=== PATIENT | male | born 1950 | race Caucasian/White ===

== ENCOUNTER 2019-02-21 09:15 | Inpatient (IN) ==
--- NOTE | 2019-02-08 16:07 | PAT Medication Instructions ---
Medication Instructions Date of Service February 08, 2019 Home Medications cholecalciferol (vitamin D3) 5,000 5,000 units PO DAILY diazepam 5 mg tablet 5 mg PO DAILY tab docusate sodium 100 mg capsule 100 mg PO DAILY glipizide 10 mg tablet 10 mg PO DAILY hydrochlorothiazide 25 mg tablet 25 mg PO DAILY lisinopril 20 mg tablet 20 mg PO DAILY magnesium 200 mg tablet 400 mg PO DAILY tab pseudoephedrine ER 120 mg 120 mg PO Q12H sildenafil 100 mg tablet 100 mg PO DAILY PRN Fire Cider 1 dose PO QAM Continue as directed diazepam 5 mg tablet 5 mg PO DAILY tab DO NOT take the morning of surgery cholecalciferol (vitamin D3) 5,000 5,000 units PO DAILY docusate sodium 100 mg capsule 100 mg PO DAILY glipizide 10 mg tablet 10 mg PO DAILY hydrochlorothiazide 25 mg tablet 25 mg PO DAILY lisinopril 20 mg tablet 20 mg PO DAILY magnesium 200 mg tablet 400 mg PO DAILY tab pseudoephedrine ER 120 mg 120 mg PO Q12H sildenafil 100 mg tablet 100 mg PO DAILY PRN Fire Cider 1 dose PO QAM Other Notes If you have any questions please call us at [phone] or [phone] or [phone] or [phone]
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
[2019-02-09 11:29] LABS: Basophils # (auto) 0.03 K/uL (0-0.2); Basophils % (auto) 0.4 %; Eosinophils # (auto) 0.14 K/uL (0-0.5); Eosinophils % (auto) 1.8 %; Hematocrit (blood only) 50.8 % (42-52); Hemoglobin 18.5 g/dL (14.0-18.0); Immature Granulocytes # (auto) 0.04 K/uL (0.00-0.02); Immature Granulocytes % (auto) 0.5 %; Lymphocytes # (auto) 2.31 K/uL (1.2-3.4); Lymphocytes % (auto) 30.5 %; Mean Corpuscular Hgb Conc 36.4 g/dL (32-36); Mean Corpuscular Volume 94.2 fL (80-100); Mean Platelet Volume 11.6 fL (7.4-10.4); Monocytes # (auto) 0.89 K/uL (0.11-0.59); Monocytes % (auto) 11.8 %; Neutrophils # (auto) 4.16 K/uL (1.4-6.5); Platelet Count 195 K/uL (130-400); RDW Coefficient of Variation 13.1 % (11.5-14.5); RDW Standard Deviation 44.7 fL (36.4-46.3); Red Blood Count 5.39 M/uL (4.7-6.1); White Blood Count 7.57 K/uL (4.8-10.8)
[2019-02-09 11:36] LABS: Appearance Urine Clear (Clear); Bilirubin Urine Negative (Negative); Blood Urine Negative (Negative); Color Urine Yellow; Glucose Urine UA 3+ (Negative); Ketones Urine Trace (Negative); Leukocyte Esterase Urine Negative (Negative); Nitrite Urine Negative (Negative); Protein Urine Negative (Negative); Specific Gravity Urine 1.025 (1.000-1.030); Urobilinogen Urine Negative (Negative)
[2019-02-09 11:39] LABS: BUN Creatinine Ratio 16.5 (10-20); Calcium 9.3 mg/dl (8.5-10.1); Creatinine Clr Calc Pharmacy 87.1 ml/min; Est GFR (African American) 104.5; Est GFR (Non-African American) 90.2; Potassium 4.2 mmol/L (3.5-5.1)
--- NOTE | 2019-02-09 11:45 | XRay Report ---
TWO VIEW CHEST CLINICAL HISTORY: Preoperative examination. FINDINGS: PA and lateral chest radiographs are obtained No prior studies are available for comparison at the time of dictation. The cardiomediastinal silhouette is unremarkable, noting atherosclerotic c alcification of the thoracic aorta. A 10 mm nodular density projects over the left lower lobe. Emphys jennifer is suspected. Nonspecific interstitial thickening is likely chronic. No airspace consolidation or pleural effusion is identified. There is no pneumothorax. The bony thorax appears intact. Degenerati ve change is noted in the thoracic spine. IMPRESSION: 1. There is no active disease in the chest. 2. Suspect emphysema. 3. A 10 mm nodular density projecting over the left lower lobe likely represents a nipple shadow. A r epeat examination with nipple markers is recommended for confirmation. Electronically signed by: Aamir Cano M.D. 02/09/2019 11:43 AM
[~2019-02-21 09:15] MED LIST: CEFAZOLIN 2000MG 2,000 MG/15 ML SYR IV SCH; DEXAMETHASONE SOD INJ 4 MG/ML VIAL ONE; GLYCOPYRROLATE 0.2 MG/ML VIAL ONE; HEPARIN SOD (PORCINE) 1000 UNIT/ML 1 ML VIAL IV SCH; HEPARIN SOD (PORCINE) 5,000 UNITS/ML VIAL IV SCH; LIDOCAINE HCL 2% 2 ML VIAL/AMP(20MG/ML) INFIL ONE; LR 15ML/HR IV SCH; MIDAZOLAM HCL 1 MG/ML 2ML VIAL ONE; NEOSTIGMINE METHYLSULFATE 5 MG/5 ML SYR ONE; ONDANSETRON INJ 2 MG/ML 2 ML VIAL ONE; PROPOFOL IV EMULSION 10 MG/ML 20 ML VIAL IV ONE; fentaNYL citrate 100 MCG/2 ML VIAL ONE
[2019-02-21] MEDS ORDERED: ePHEDrine sulfate 50 MG/ML AMP IV PRN (10:00)
[2019-02-21] MEDS ORDERED: ATROPINE SULFATE 0.1 MG/ML 10ML SYR IV PRN (10:00)
[2019-02-21] MEDS ORDERED: DEXAMETHASONE SOD INJ 4 MG/ML VIAL IV PRN (10:00)
[2019-02-21] MEDS ORDERED: HYDROmorphone INJ 2 MG/ML SYR/VIAL IV PRN (10:00)
[2019-02-21] MEDS ORDERED: fentaNYL citrate 100 MCG/2 ML VIAL IV PRN (10:00)
[2019-02-21] MEDS ORDERED: ONDANSETRON INJ 2 MG/ML 2 ML VIAL IV PRN ×2 (10:00→16:11)
--- NOTE | 2019-02-21 10:17 | History & Physical Bridge Note ---
Date of Service February 21, 2019 History & Physical Bridge Note I have examined the patient, reviewed the History & Physical and in the interval since the performance of the History & Physical I have noted the following changes of clinical significance: no changes noted
[2019-02-21] MEDS ORDERED: HEPARIN SOD 5,000 UNIT/0.5 ML VIAL ONE (10:29)
[2019-02-21] MEDS ORDERED: BUPIVACAINE 0.5 % 5 MG/1 ML MPF 30ML VIAL ONE (10:59)
[2019-02-21] MEDS ORDERED: BELLADONNA/OPIUM SUPP 60 MG SUPP PR ONE (11:31)
[2019-02-21] MEDS ORDERED: ONDANSETRON INJ 2 MG/ML 2 ML VIAL ONE (11:45)
[2019-02-21] MEDS ORDERED: GLYCOPYRROLATE 0.2 MG/ML VIAL ONE (11:45)
[2019-02-21] MEDS ORDERED: HYDROmorphone INJ 2 MG/ML SYR/VIAL ONE (11:56)
[2019-02-21] MEDS ORDERED: FLOSEAL HEMOSTATIC MATRIX 10ML TOP ONE (12:32)
[2019-02-21] MEDS ORDERED: LABETALOL HCL IV 5 MG/ML 20ML IV ONE (12:56)
--- NOTE | 2019-02-21 14:27 | Operative Report ---
Post Operative Report Pre & Post Diagnosis Operation Date: 02/21/19 11:10 Pre-Op Diagnosis: Prostate Cancer Post-Op Diagnosis: Prostate Cancer Procedure Operation Date: 02/21/19 11:10 Actual Procedures p Robot Assisted Laparoscopic Radical Retropubic Prostatectomy(Not Applicable) - Lázaro Contreras MD Surgeon Jostin Contreras MD Supervisor [employer] Angelique Gautam Estimated Blood Loss 100 Findings Consistent with Post-Op Diagnosis Specimens 1. Periprostatic fat 2. R pelvic lymph nodes 3. L pelvic lymph nodes 4. Prostate and seminal vesicles Description of Procedure The patient was identified in the preoperative holding area, appropriate informed consents were reviewed and completed, and he was transported to the operating suite. Subcutaneous heparin was administered in the pre-operative holding area. Upon arrival in the operating suite, he received appropriate antibiotics and general anesthesia. He was positioned in dorsal lithotomy, a B&O suppository was inserted after digital rectal exam, and he was prepped and draped in standard fashion. A Carvajal catheter was inserted in the sterile field. A Veress needle was passed per umbilicus with uniform insufflation of the abdomen to 15mmHg. He was placed in steep Trendelenburg position. A periumbilical incision was then made to accommodate a 12mm Visiport with 10mm 0degree laparoscope. Inspection of the abdomen was carried out, and there was no evidence of traumatic entry or injury secondary to the Veress needle. After confirming a clear anterior abdominal wall, ports were subsequently placed in standard robotic prostatectomy fashion without incident. To begin the robotic portion of the case, the left lateral aspect of the sigmoid was mobilized off of the left pelvic side wall to allow the pouch of Matt to be appropriately visualized. I then made an incision in the pouch of Matt, overlying the seminal vesicles. Both SVs as well as the ampullae of the vasa were entirely dissected, with the vasa transected 3cm from the prostate. The medial umbilical ligaments were then controlled with bipolar electrocautery just inferior to the umbilicus. Following cauterization, they were divided utilizing monopolar cautery. A peritoneal incision was carried from this location to the medial aspect of the internal inguinal rings bilaterally with care to avoid opening through the ring. This incision was concluded when the vas deferens was reached. Dissection of the bladder and prostate off of the posterior aspect of the pubic arch was completed allowing full visualization of the prostate. The fat overlying the prostate was removed en bloc and passed off the table as a specimen labeled "periprostatic fat". The endopelvic fascia was cleared during this portion of the procedure, and subsequently opened - first on the right and then the left. The incision through the endopelvic fascia began near the prostate-bladder junction and was carried to the apex with extreme care to preserve all lateral levator musculature as well as the periurethral musculature and sphincter complex. The puboprostatic ligaments were thinned slightly bilaterally before placing a 0-Vicryl figure of 8 stitch around the DVC. The lymph node dissection was then conducted. External iliac vessels were identified on the pelvic side wall. The packet of fat and lymphatic tissue that resides just under the iliac vein was elevated and off of the vein with a split and roll technique. The packet was dissected laterally to the circumflex vein and distally to the obturator nerve which was preserved. The proximal aspect of the packet was carried towards the bifurcation of the iliac vessels. A combination of monopolar and bipolar cautery were used to assist wi th control. Clips were placed at the proximal and distal aspects of the packet prior to transection. After completing the dissection on both sides, the packets were collected and passed off of the table as specimens labeled "pelvic lymph nodes". My attention then returned to the prostate, with identification of the bladder neck aided by gentle traction on the Carvajal catheter and lateral to medial pressure at the presumed level of the bladder neck with the robotic instruments. An anterior cystotomy was made, the Carvajal balloon deflated and the catheter guided through the incision to allow anterior retraction. I attempted to preserve maximal bladder neck musculature as I circumferentially dissected around the bladder neck. After incision through the posterior aspect of the mucosa, the dissection was carried through detrusor muscle until the bilateral ampullae of the vasa were identified. The previously dissected vasa and SVs were brought through the incision and used to elevated the prostate anteriorly. A posterior plane behind the prostate was then developed - splitting Denonvilliers's fascia. This dissection was carried as far as possible towards the apex as well as far as possible laterally. An incision in the lateral prostatic fascia was then made bilaterally to facilitate control of the vascular pedicles. The pedicles were each controlled with a series of Weck clips. The neurovascular bundles were identified with a relatively wide/cautious never dissection bilaterally. The apical attachments of the prostate were remaining at that stage. The DVC was divided with bipolar electrocautery. Ramonita-prostatic tissue incised with sharp dissection and monopolar cautery. Maximal urethral length was preserved before dividing the urethra sharply. The prostate was entirely freed at that point, and collected in an EndoCatch bag before being moved out of the field of vision. Hemostasis was confirmed and anastomosis of the bladder and urethra was completed utilizing a double armed V- Lock stitch. A new Carvajal catheter was inserted and the anastomosis tested with irrigation. There was no evidence of leak. FloSeal coagulant was placed around the anastomosis. A "Livan stitch" was used to marsupialize the area where the lymph node dissection was conducted. The robot was undocked, the specimen extracted through expansion of the ramonita- umbilical camera port. The fascia was closed with a series of 0-PDS figure of 8 stitches. The right pet care assistant port was closed in two layers - with a figure of 8 0-Vicryl to reapproximate the fascia followed by 4-0 Monocryl to close the skin. Monocryl was used to close all other skin incisions. All wounds were dressed with Dermabond. The case was concluded and the patient taken to the PACU in stable condition. I attest to the content of the Intraoperative Record and any orders documented therein. Any exceptions are noted below.
[2019-02-21] MEDS ORDERED: ROCURONIUM BROMIDE 10 MG/ML 5 ML VIAL ONE (14:43)
[2019-02-21 14:56] LABS: Basophils # (auto) 0.03 K/uL (0-0.2); Basophils % (auto) 0.3 %; Eosinophils # (auto) 0.03 K/uL (0-0.5); Eosinophils % (auto) 0.3 %; Hematocrit (blood only) 47.7 % (42-52); Hemoglobin 17.3 g/dL (14.0-18.0); Immature Granulocytes # (auto) 0.04 K/uL (0.00-0.02); Immature Granulocytes % (auto) 0.4 %; Lymphocytes # (auto) 0.76 K/uL (1.2-3.4); Lymphocytes % (auto) 8.3 %; Monocytes % (auto) 3.3 %; Neutrophils # (auto) 7.95 K/uL (1.4-6.5); Neutrophils % (auto) 87.4 %; Platelet Count 222 K/uL (130-400); RDW Standard Deviation 44.6 fL (36.4-46.3); Red Blood Count 5.02 M/uL (4.7-6.1); White Blood Count 9.11 K/uL (4.8-10.8)
[2019-02-21] MEDS ORDERED: PROMETHAZINE HCL 12.5 MG in SODIUM CHLORIDE 0.9% 50 ML IV STA (14:59)
[2019-02-21 15:03] LABS: Mean Corpuscular Hgb Conc 36.3 g/dL (32-36)
--- NOTE | 2019-02-21 15:10 | Anesthesiology Progress Note ---
Date of Service February 21, 2019 Anesthesia Post Procedure Vital Signs Vital Signs: Temp Pulse Pulse Resp BP Pulse Ox 02/21/19 15:05 76 14 129/75 90 02/21/19 14:55 76 14 137/82 93 02/21/19 14:45 77 17 129/77 89 L 02/21/19 14:36 36.1 C L 80 21 138/76 93 02/21/19 09:23 36.2 C L 80 20 133/85 92 Notes Mental Status: alert / awake / arousable and participated in evaluation Patient Amnestic to Procedure: Yes Nausea / Vomiting: adequately controlled Pain: adequately controlled Airway Patency, RR, SpO2: stable & adequate BP & HR: stable & adequate Hydration State: stable & adequate Anesthetic Complications: no major complications apparent
[2019-02-21 15:15] LABS: BUN Creatinine Ratio 13.7 (10-20); Calcium 8.6 mg/dl (8.5-10.1); Creatinine Clr Calc Pharmacy 81.3 ml/min; Est GFR (African American) 100.7; Est GFR (Non-African American) 86.9
[2019-02-21] MEDS ORDERED: NICOTINE 14 MG/24 HR PATCH TD PRN (16:11)
[2019-02-21] MEDS ORDERED: diazePAM 5 MG TABLET PO PRN (16:11)
[2019-02-21] MEDS ORDERED: ACETAMINOPHEN 325 MG TAB PO PRN (16:11)
[2019-02-21] MEDS ORDERED: ACETAMINOPHEN W/CODEINE #3 1 TAB PO PRN (16:11)
[2019-02-21] MEDS ORDERED: PHARMACY GLYCEMIC MGMT CONSULT PRN (16:23)
[2019-02-21] MEDS: KETOROLAC TROMETHAMINE 15 MG/ML VIAL IV PRN (16:42)
[2019-02-21] MEDS ORDERED: INSULIN GLARGINE SOLOSTAR 100 UNITS/ML 3 ML PEN SC STA (16:47)
[2019-02-21] MEDS ORDERED: GLUCAGON FOR INJ 1 MG VIAL IM PRN (17:00)
[2019-02-21] MEDS ORDERED: DEXTROSE 50% 50 ML SYRINGE IV PRN (17:00)
[2019-02-21] MEDS ORDERED: GLUCOSE 40% GEL 15 GM TUBE PO PRN (17:00)
[2019-02-21] MEDS ORDERED: GLUCOSE 10 TABS/TUBE PO PRN (17:00)
[2019-02-21] MEDS ORDERED: CARBOHYDRATES FOR HYPOGLYCEMIA PO PRN (17:00)
[2019-02-21] MEDS: INSULIN ASPART 100 UNITS/ML 3 ML PEN SC SCH ×2 (18:26→21:20)
[2019-02-21] MEDS: LACTATED RINGER'S 1,000 ML IV SCH (18:31)
[2019-02-21 19:57] LABS: Prothrombin Time 10.3 Seconds (9.0-12.0)
[2019-02-21] MEDS: MoRPHine SULFATE 4 MG/ML 1 ML CARP\\VIAL IV PRN (20:42)
[2019-02-21] MEDS: CEFAZOLIN 2000MG 2,000 MG/15 ML SYR IV SCH (20:43)
[2019-02-21] MEDS: BRIMONIDINE TARTRATE 0.2% 5ML OP SCH (21:22)
[2019-02-21] MEDS: HEPARIN SOD 5,000 UNIT/0.5 ML VIAL SQ SCH (21:22)
[2019-02-22] MEDS: MoRPHine SULFATE 4 MG/ML 1 ML CARP\\VIAL IV PRN ×4 (00:10→11:01)
[2019-02-22] MEDS: INSULIN ASPART 100 UNITS/ML 3 ML PEN SC SCH ×6 (00:11→21:18)
[2019-02-22] MEDS: LACTATED RINGER'S 1,000 ML IV SCH ×4 (00:12→23:53)
[2019-02-22] MEDS: CEFAZOLIN 2000MG 2,000 MG/15 ML SYR IV SCH (04:03)
[2019-02-22 07:40] LABS: Basophils # (auto) 0.02 K/uL (0-0.2); Basophils % (auto) 0.2 %; Eosinophils # (auto) 0.08 K/uL (0-0.5); Eosinophils % (auto) 0.9 %; Hematocrit (blood only) 40.5 % (42-52); Hemoglobin 14.1 g/dL (14.0-18.0); Immature Granulocytes # (auto) 0.01 K/uL (0.00-0.02); Immature Granulocytes % (auto) 0.1 %; Lymphocytes # (auto) 2.43 K/uL (1.2-3.4); Lymphocytes % (auto) 27.6 %; Mean Corpuscular Hgb Conc 34.8 g/dL (32-36); Mean Platelet Volume 11.1 fL (7.4-10.4); Monocytes # (auto) 1.13 K/uL (0.11-0.59); Monocytes % (auto) 12.9 %; Neutrophils # (auto) 5.12 K/uL (1.4-6.5); Neutrophils % (auto) 58.3 %; Platelet Count 194 K/uL (130-400); RDW Coefficient of Variation 13.1 % (11.5-14.5); RDW Standard Deviation 45.7 fL (36.4-46.3); Red Blood Count 4.22 M/uL (4.7-6.1); White Blood Count 8.79 K/uL (4.8-10.8)
[2019-02-22 07:55] LABS: BUN Creatinine Ratio 12.7 (10-20); Calcium 8.2 mg/dl (8.5-10.1); Creatinine Clr Calc Pharmacy 89.2 ml/min; Est GFR (African American) 105.5; Potassium 4.3 mmol/L (3.5-5.1)
--- NOTE | 2019-02-22 07:58 | Urology Progress Note ---
Date of Service February 22, 2019 Assessment & Plan (1) Prostate cancer: POD#1 s/p robotic prostatectomy - doing well - ambulate - if progresses appropriately, possible d/c home today vs tomorrow Subjective Doing well - some pain -OOB overnight -no nausea - O2 sats are not perfect Physical Exam Vital Signs (Past 24 Hours): Last Vital Signs Temp 36.7 C 02/22/19 04:02 Pulse 78 02/22/19 04:02 Resp 16 02/22/19 04:02 BP 133/83 02/22/19 04:02 Pulse Ox 94 02/22/19 04:02 Physical Exam: NAD AAOx3 AFVSS abd soft - incisions appropriate urine clearing
[2019-02-22 08:21] LABS: Estimated Average Glucose 266 mg/dl; Hemoglobin A1C 10.9 % (4.5-5.6)
--- NOTE | 2019-02-22 08:32 | Anesthesiology Progress Note ---
Date of Service February 22, 2019 Anesthesia Post Procedure Vital Signs Vital Signs: Temp Pulse Pulse Pulse Resp BP Pulse Ox 02/22/19 08:14 36.8 C 73 17 132/64 91 02/22/19 04:02 36.7 C 78 16 133/83 94 02/22/19 00:00 36.5 C 80 18 135/80 94 02/21/19 19:03 36.4 C L 84 19 148/81 H 95 02/21/19 18:19 36.5 C 91 H 16 144/70 H 93 02/21/19 16:59 36.3 C L 83 18 142/89 H 91 02/21/19 16:36 36.4 C L 84 19 146/88 H 93 02/21/19 15:46 76 16 130/78 92 02/21/19 15:35 36.4 C L 76 16 147/84 H 92 02/21/19 15:25 79 14 141/81 H 95 02/21/19 15:15 76 14 124/76 91 02/21/19 15:05 76 14 129/75 90 02/21/19 14:55 76 14 137/82 93 02/21/19 14:45 77 17 129/77 89 L 02/21/19 14:36 36.1 C L 80 21 138/76 93 02/21/19 09:23 36.2 C L 80 20 133/85 92 Pulse Ox 02/22/19 08:14 02/22/19 04:02 02/22/19 00:00 92 02/21/19 19:03 02/21/19 18:19 02/21/19 16:59 02/21/19 16:36 02/21/19 15:46 02/21/19 15:35 02/21/19 15:25 02/21/19 15:15 02/21/19 15:05 02/21/19 14:55 02/21/19 14:45 02/21/19 14:36 02/21/19 09:23 Pain Intensity Abdomen: Pain Intensity: 8 Notes Mental Status: alert / awake / arousable and participated in evaluation Patient Amnestic to Procedure: Yes Nausea / Vomiting: adequately controlled Pain: improving with treatment and see Notes below Airway Patency, RR, SpO2: stable & adequate BP & HR: stable & adequate Hydration State: stable & adequate Anesthetic Complications: no major complications apparent Notes: Patient instructed to ask for more pain medication since last dose aroune 0400 (per pt). He was also instructed to ask for pain medication prior to it becoming severe. And if current regimen not controlling pain, surgeon can alter medications. Pt verbalized understanding and notified RN for more pain medications.
[2019-02-22] MEDS: DOCUSATE SODIUM 100 MG CAP PO SCH (08:42)
[2019-02-22] MEDS: LISINOPRIL 20 MG TAB PO SCH (08:42)
[2019-02-22] MEDS: MAGNESIUM OXIDE 400 MG TAB PO SCH (08:42)
[2019-02-22] MEDS: hydroCHLOROthiazide 25 MG TAB PO SCH (08:42)
[2019-02-22] MEDS: CHOLECALCIFEROL 1,000 UNITS TAB PO SCH (08:43)
[2019-02-22] MEDS: BRIMONIDINE TARTRATE 0.2% 5ML OP SCH ×2 (08:45→21:15)
[2019-02-22] MEDS ORDERED: [UNRECOGNIZED DRUG - OTHER] PO SCH (09:00)
[2019-02-22] MEDS: HEPARIN SOD 5,000 UNIT/0.5 ML VIAL SQ SCH ×2 (09:47→21:15)
--- NOTE | 2019-02-22 10:55 | Pharmacy Report ---
Glycemic Control Consultation - Date of Service February 22, 2019 - Scope Scope: Glycemic Pharmacist consulted by Dain on 2 for glycemic control and to write orders per [facility] inpatient glycemic control protocol - Objective Weight: 82.282 kg Accuchecks BSG (last 24hrs): 02/21/19 02/21/19 02/21/19 14:42 14:43 17:20 Glucose 260 H POC Glucose 242 H 257 H 02/21/19 02/21/19 02/22/19 20:43 23:44 03:59 Glucose POC Glucose 256 H 196 H 141 H 02/22/19 02/22/19 07:10 08:14 Glucose 135 H POC Glucose 150 H Laboratory Data (last 24hrs): 02/21/19 02/22/19 14:43 07:10 Potassium 4.0 4.3 Carbon Dioxide 29 30 Anion Gap 5.0 6.0 Creatinine 0.91 0.83 Est Cr Clr Drug Dosing 81.3 89.2 HbA1c: Hemoglobin A1c 10.9 % (4.5-5.6) H 02/22/19 07:10 - Recent Pertinent Medications Outpatient Anti-diabetic Regimen: * Glipizide 10 mg daily * A1c = 10.9% [4-3-19] Risk Factors for Insulin Resistance: * Steroids: DXM intraop * Recent Surgery: POD 1 * Diet: T2DM - clear liquids - Assessment & Plan Assessment & Plan: ASSESSMENT: * Patient now s/p prostatectomy, POD 1 today. Received steroids in OR yesterday, therefore basal/bolus insulin initiated postop * Received total of 32 units of insulin yesterday, of which 15 units were basal insulin * Fasting BSG this am 135 mg/dL - will see how BSGs trend, but may need to add basal insulin to regimen. A1C came back this at 10.9% indicated poor glycemic control outpatient. Only managed on glipizide at home. * BSGs yesterday 256-196-141 mg/dL trending down, steroids likely wearing off - will continue same CF/CR but may need adjusted as PO intake improves PLAN FOR INPATIENT GLYCEMIC CONTROL: * Pt is maintained on oral antidiabetic agents as an outpatient * Oral agents are not recommended for inpatient use d/t drug interactions, changing PO intake, and difficulty titrating for acute hyper/hypoglycemia. ADA recommends re-initiating outpatient oral agents 1-2 days prior to discharge if/when appropriate if they were held on admission. * Will hold oral agents for admission and utilize SQ basal bolus insulin regimen which is the recommended regimen for inpatient glycemic control. * Will initiate weight based insulin dosing for insulin ferny patient and titrate based on BSG trends. * Basal insulin * Lantus - will add scale for this evening for BSG >180 * Bolus insulin - continue same * NovoLog per scale ACHS or Q6hrs while NPO * Goal Range: Low 110 mg/dL - High 140 mg/dL * Correction Factor: 20 mg/dL/unit * Nutritional / Prandial insulin per carb ratio of 1 unit per 6 grams CHO consumed * Please note that the plan above was derived based on current level of insulin resistance and hospital stress. These recommendations are appropriate for inpatient admission only. Plan of care upon discharge will need to be reassessed to avoid potential outpatient hypo/hyperglycemia. Thank you.
[2019-02-22] MEDS: KETOROLAC TROMETHAMINE 15 MG/ML VIAL IV PRN (11:45)
[2019-02-22] MEDS ORDERED: OXYCODONE HCL IR 5 MG TAB (IMMEDIATE RELEASE) PO PRN (11:50)
[2019-02-22] MEDS: OXYCODONE HCL IR 5 MG TAB (IMMEDIATE RELEASE) PO PRN ×2 (13:32→23:59)
[2019-02-22] MEDS ORDERED: COUGH DROP (SUGAR FREE) LOZ 24 LOZ/1 BOX BUCCAL PRN (16:15)
[2019-02-22] MEDS ORDERED: COUGH DROP (SUGAR FREE) LOZ 24 LOZ/1 BOX BUCCAL ONE (16:16)
[2019-02-22] MEDS ORDERED: INSULIN GLARGINE SOLOSTAR 100 UNITS/ML 3 ML PEN SC SCH (21:00)
[2019-02-23] MEDS: OXYCODONE HCL IR 5 MG TAB (IMMEDIATE RELEASE) PO PRN ×2 (04:19→10:52)
[2019-02-23 06:44] LABS: Basophils # (auto) 0.02 K/uL (0-0.2); Basophils % (auto) 0.2 %; Eosinophils # (auto) 0.15 K/uL (0-0.5); Eosinophils % (auto) 1.6 %; Hematocrit (blood only) 37.3 % (42-52); Immature Granulocytes # (auto) 0.03 K/uL (0.00-0.02); Immature Granulocytes % (auto) 0.3 %; Lymphocytes # (auto) 1.82 K/uL (1.2-3.4); Mean Corpuscular Hgb Conc 34.9 g/dL (32-36); Mean Corpuscular Volume 96.4 fL (80-100); Mean Platelet Volume 11.1 fL (7.4-10.4); Monocytes # (auto) 1.59 K/uL (0.11-0.59); Monocytes % (auto) 16.6 %; Neutrophils # (auto) 5.98 K/uL (1.4-6.5); Neutrophils % (auto) 62.3 %; Platelet Count 183 K/uL (130-400); RDW Coefficient of Variation 12.9 % (11.5-14.5); RDW Standard Deviation 45.2 fL (36.4-46.3); Red Blood Count 3.87 M/uL (4.7-6.1); White Blood Count 9.59 K/uL (4.8-10.8)
[2019-02-23 07:07] LABS: BUN Creatinine Ratio 11.9 (10-20); Calcium 7.9 mg/dl (8.5-10.1); Creatinine Clr Calc Pharmacy 123.4 ml/min; Est GFR (African American) 120.6; Potassium 3.7 mmol/L (3.5-5.1)
[2019-02-23] MEDS: LACTATED RINGER'S 1,000 ML IV SCH (07:47)
--- NOTE | 2019-02-23 08:44 | Urology Progress Note ---
Date of Service February 23, 2019 Assessment & Plan (1) Prostate cancer: POD#2 s/p ralp - doing well - home today with catheter Subjective doing very well -minimal pain -ambulating - tolerating a diet - breathing well Physical Exam Vital Signs (Past 24 Hours): Last Vital Signs Temp 36.7 C 02/23/19 07:41 Pulse 80 02/23/19 07:41 Resp 18 02/23/19 07:41 BP 147/76 H 02/23/19 07:41 Pulse Ox 93 02/23/19 07:41 Physical Exam: AFVSS NAD AAOx3 no resp distress RRR abd soft, incisions appropriate urine pink
[2019-02-23] MEDS: BRIMONIDINE TARTRATE 0.2% 5ML OP SCH (08:51)
[2019-02-23] MEDS: DOCUSATE SODIUM 100 MG CAP PO SCH (08:52)
[2019-02-23] MEDS: LISINOPRIL 20 MG TAB PO SCH (08:52)
[2019-02-23] MEDS: CHOLECALCIFEROL 1,000 UNITS TAB PO SCH (08:52)
[2019-02-23] MEDS: MAGNESIUM OXIDE 400 MG TAB PO SCH (08:53)
[2019-02-23] MEDS: hydroCHLOROthiazide 25 MG TAB PO SCH (08:53)
[2019-02-23] MEDS: HEPARIN SOD 5,000 UNIT/0.5 ML VIAL SQ SCH (08:53)
[2019-02-23] MEDS: INSULIN ASPART 100 UNITS/ML 3 ML PEN SC SCH (08:59)
--- NOTE | 2019-02-27 07:56 | Discharge Summary ---
Date of Service February 27, 2019 Admission HPI Per Admitting Provider Admitted for prostatectomy secondary to recently diagnosed prostate cancer Principal Diagnosis Prostate cancer Discharge Data Allergies Allergy/AdvReac Type Severity Reaction Status Date / Time No Known Allergies Allergy Verified 02/21/19 09:35 Procedures Performed Operation Date: 02/21/19 11:10 Actual Procedures p Robot Assisted Laparoscopic Radical Retropubic Prostatectomy(Not Applicable) - Lázaro Contreras MD Hospital Course (1) Prostate cancer: Patient admitted for a robotic prostatectomy - details of the procedure as dictated previously in my operative report - in summary, he tolerated the procedure very well - he was in stable condition overnight with appropriate urine output and stable labs - he was subsequently discharged home with a ace catheter - he was in stable condition at the time of discharge Total Time Total Time Spent Total Time Spent (In Minutes): 30 Total Time Includes: Examination of the Patient, Discharge Planning and Medication Reconciliation Discharge Plan Discharge Items Patient Disposition: Home - Self-Care Reason For Visit: Prostate Cancer Discharge Diagnosis: prostate cancer Discharge Goals: Learn about illness, Prevent disease and Specific goals Activity: As commented below Activity Comment: walking and stairs in your home are okay Lifting: No more than 10 pounds Bathing Comment: Okay to shower, no tub baths or soaking. Please do not pick at surgical glu Sexual Activity: Wait until after follow-up appointment Exercise/Sports: Wait until after follow-up appointment Driving/Machine Use: Resume 1 day after discharge Driving/Machine Use Comment: Please do not drive while taking prescription pain control. Non-emergency contact: Urologist Call non-emergency contact if: your symptoms worsen, your pain is unusual for you, your pain is concerning for you, your temperature is above 101, your wound has increased redness, your wound has increased drainage and your wound pain has increased Follow-up/Referrals: Gabo Barker [Primary Care Provider] - Diet: Regular Addtl Provider Instructions: Please take all medications as prescribed and keep all follow-ups as scheduled. Please call our office at [phone] with any questions, concerns or need to reschedule appointments for any reason. We are happy to assist you Activity: We recommend having someone with you for the first few days after surgery to help care for you. For the first 2 weeks after surgery, we would like you to get up and walk around your house. However, we recommend limit physical activity that would increase your heart rate. This will allow your body to rest and heal. Take naps if you feel tired. Don't lift anything heavier than 10 pounds, mow the law or ride a bicycle until your follow-up appointment. Please avoid long car rides. Home Care: Unless directed otherwise, drink 6 to 8 glasses of water a day (enough to keep your urine light colored). This will also help keep a healthy flow of urine. We recommend using a stool softener for the first two weeks to avoid constipation. Ace Catheter care: Keep the catheter well secured with either a leg back or leg strap with large bag. Empty your bag when it's about half full. You may notice some blood in the bag. This is normal after surgery and while the catheter is in place. Use mild soap (such as Dove or Dial) and water to wash the catheter and the head of your penis daily, or more frequently if needed. Return to your normal diet, we encourage good protein intake to promote healing. You may shower as normal. Please avoid tub baths or soaking until catheter removed and incisions well healed. Wearing sweat pants while you have the catheter is recommended, they will be more comfortable. We have sent an antibiotic to your pharmacy of choice. Please begin antibiotic as prescribed the day BEFORE your scheduled voiding trial at [facility]. Please continue antibiotic every 12 hours through the day AFTER your voiding trial. Follow-up Your follow up appointments for having your catheter removed, and follow up with your physician should already be scheduled. If you have any questions regarding this, please contact our office. Your final pathology report will be discussed at your physician follow-up appointment. Call [facility] at [phone] right away if you have any of the following: Chest pain or trouble breathing (call [phone] or go to the hospital) Fever of 101F or higher, uncontrolled vomiting Heavy bleeding, clots, or bright red blood from the catheter Catheter that falls out or stops draining Foul-smelling discharge from your catheter Redness, swelling, warmth, or increased pain at your incision site Drainage, pus, or bleeding from your incision Prescriptions: New ciprofloxacin HCl 500 mg tablet 500 mg PO Q12H Qty: 6 RF: 0 docusate sodium [Colace] 100 mg capsule 100 mg PO BID Qty: 60 RF: 0 oxycodone 5 mg tablet 5 mg PO Q6H PRN (Reason: pain) Qty: 14 RF: 0 Continued glipizide 10 mg tablet 10 mg PO DAILY RF: 0 hydrochlorothiazide 25 mg tablet 25 mg PO DAILY RF: 0 lisinopril 20 mg tablet 20 mg PO DAILY RF: 0 magnesium 200 mg tablet 400 mg PO DAILY RF: 0 pseudoephedrine HCl [Sudafed 12 Hour] 120 mg tablet extended release 120 mg PO Q12H RF: 0 cholecalciferol (vitamin D3) 5,000 unit capsule 5,000 units PO DAILY RF: 0 diazepam 5 mg tablet 5 mg PO DAILY RF: 0 Fire Cider 1 dose PO QAM RF: 0 Medical marijuana 1 puff Inhalation BID RF: 0 brimonidine 2 drp ophthalmic (eye) BID RF: 0 Discontinued sildenafil 100 mg tablet 100 mg PO DAILY PRN (Reason: PRN) RF: 0 docusate sodium [Stool Softener] 100 mg capsule 100 mg PO DAILY RF: 0 Stand-Alone Forms: [facility]/Other Patient Handouts: Leg Bag Care Dc Discharge Orders: Discharge Order (Routine); Ordered 02/23/19 Ordered By: Maureen Gautam Admission Data Admit Date/Time: 02/21/19 15:08 Attending Provider: Lázaro Contreras Admit Provider: Lázaro Contreras Primary Care Provider: Gabo Barker Service: Surgical Services Other Interventions: Discharge Summary Assessment (RN) Last Done: 02/23/19 10:11 DC Date/Time DO NOT enter until pt leaves facility: 02/23/19 11:54
== END 2019-02-23 11:54 | disposition home or self-care (01) | DRG 708 ==
LOC: ASU 09:15 → 3N 15:08